=== PATIENT | female | born 2000 | race Caucasian/White ===

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

== ENCOUNTER 2023-12-17 12:40 | Emergency (ER) | payer MEDICAID, OTHER ==
[~2023-12-17] VITALS: Ht 167.6 cm; Wt 63.5 kg
[~2023-12-17 12:40] MED LIST: CYCL5TAB MT; IBUP-2029 MT
[2023-12-17 12:57] VITALS: BP 128/78; PULSE 75; RESP 16; TEMP 98.2; O2SAT 99
== END 2023-12-17 14:16 | disposition home or self-care (01) ==
LOC: ER 12:40
DX: M67.431 Ganglion, right wrist (principal); Z98.890 Other specified postprocedural states
CPT/HCPCS: 81025; 99282